=== PATIENT | female | born 2000 | race Caucasian/White ===

== ENCOUNTER 2019-05-13 17:46 | Emergency (ER) | payer MEDICAID ==
[~2019-05-13] VITALS: Ht 175.3 cm; Wt 104.5 kg
[~2019-05-13 17:46] MED LIST: CLINDAMYCIN150 MG PO; COLACE 100100 MG/CAP PO; NAPROSYN500 MG PO; NORCO 325 MG-51 TAB PO; PREDNISONE20 MG PO
[2019-05-13 19:04] LABS: CALCIUM 9.6 mg/dL (8.4-10.2); CREATININE, serum 0.65 (0.52-1.25); POTASSIUM 4.1 mmol/L (3.4-5.0)
[2019-05-13 20:18] VITALS: BP 125/65; PULSE 65; TEMP 98.3
== END 2019-05-13 20:20 | disposition home or self-care (01) ==
LOC: COL.ER 17:46
PROVIDERS: Nurse Practitioner
DX: T67.3XXA Heat exhaustion, anhydrotic, initial encounter (principal); Z88.0 Allergy status to penicillin; Z90.89 Acquired absence of other organs
CPT/HCPCS: J7030

== ENCOUNTER 2019-09-27 18:08 | Inpatient (IN) | payer SELFPAY ==
[~2019-09-27] VITALS: Ht 177.8 cm; Wt 83.6 kg
[2019-09-27 18:54] LABS: HEMOGLOBIN 11.8 g/dl (12.0-15.0); MEAN CELL VOLUME 83 fl (80.0-95.0); MEAN CORPUSCULAR HEMOGLOBIN 28 pg (26.0-32.0); MEAN CORPUSCULAR HGB CONC 34 g/dl (33.0-37.0); MEAN PLATELET VOLUME 10.5 fl (7.4-10.4); PLATELET COUNT 177 K/mm3 (130-400); REDCELL DISTRIBUTION WIDTH-CV 13.8 % (11.5-14.5)
[2019-09-27 18:54] LABS: COLLECTION METHOD CLEAN CATCH
[2019-09-27 18:57] LABS: HEMATOCRIT 34.7 % (35.0-45.0)
[2019-09-27 19:09] LABS: MUCOUS Present /lpf; PH 6 (5-8); SQUAMOUS EPITHELIAL 0-2 /hpf; URINE APPEARANCE Cloudy; URINE BACTERIA Moderate /hpf; URINE BILIRUBIN Negative (NEGATIVE); URINE BLOOD 2+ (NEGATIVE); URINE COLOR Amber; URINE GLUCOSE Negative (NEGATIVE); URINE KETONE 1+ (NEGATIVE); URINE LEUKOCYTE ESTERASE 2+ (NEGATIVE); URINE NITRATE Negative (NEGATIVE); URINE PROTEIN(semi-quant) 2+ (NEGATIVE); URINE UROBILINOGEN >=4.0 mg/dL (NEGATIVE)
[2019-09-27 19:12] LABS: ALBUMIN 3.5 gm/dL (3.5-5.0); BILIRUBIN,TOTAL 1.2 mg/dL (0.0-1.0); CALCIUM 8.8 mg/dL (8.4-10.2); CREATININE, serum 0.98 (0.52-1.25); POTASSIUM 3.4 mmol/L (3.4-5.0)
[2019-09-27 19:40] LABS: C-REACTIVE PROTEIN 31.1 mg/dL (0.0-0.9)
[2019-09-27 20:04] LABS: BAND 9 % (0-10); LYMPHOCYTE 4 % (20.0-51.0); NEUTROPHILS 76 % (42.0-75.2); PLATELET ESTIMATE NORMAL (NORMAL)
[2019-09-27 20:05] LABS: MICROCYTOSIS 1+
--- NOTE | 2019-09-27 21:50 | NUR ---
RECEIVED FROM ER PER W/C, 19Y/O FEMALE WITH DX PYELONEPHRITIS. IS ALERT AND ORIENTED X4. HAS SL TO RIGHT AC WITHOUT REDNESS OR SWELLING. REPORTS CURRENTLY ON HER PERIOD.
[2019-09-27 22:43] VITALS: BP 84/48; PULSE 83; TEMP 98.3; TEMP 983
--- NOTE | 2019-09-27 23:13 | NUR ---
PATIENT COMPLAINING OF "BUTTERFLIES" IN HER STOMACH AND LEFT PELVIC AREA. PETR ONEILL ORDERS MORPHINE 1MG IVP Q2HR PRN. DOSE GIVEN AT THIS TIME. PROVIDED SANDWICH BOX PER PT REQUEST.
[2019-09-27 23:19] LABS: ANION GAP 10 mmol/L (7-16); BLOOD UREA NITROGEN 18 mg/dL (7-17); CALCIUM 8.3 mg/dL (8.4-10.2); CARBON DIOXIDE 23 mmol/L (22-30); CHLORIDE 96 mmol/L (98-107); CREATININE, serum 0.82 (0.52-1.25); GLUCOSE 104 mg/dL (74-106); MAGNESIUM 2.4 mg/dL (1.6-2.3); SODIUM 129 mmol/L (137-145)
[2019-09-27 23:28] LABS: POTASSIUM 2.9 mmol/L (3.4-5.0); SALICYLATE < 1.0 mg/dL
[2019-09-27 23:33] LABS: INR 1.4 (0.8-3.0); PROTHROMBIN TIME 16.6 SECONDS (9.7-12.8)
[2019-09-27 23:48] LABS: TROPONIN-I < 0.012 ng/mL (0.000-0.035)
--- NOTE | 2019-09-28 00:20 | NUR ---
Collected urine for lab and respiratory virus panel swab at this time. Patient ate most of box lunch, sitting in bed playing on her phone. No concerns offered at this time.
--- NOTE | 2019-09-28 03:25 | NUR ---
PATIENT RESTING IN BED. IV POTASSIUM INFUSING WITHOUT BURNING OR PAIN. HAS VOIDED SEVERAL TIMES SINCE ARRIVAL TO FLOOR. NO COMPLAINTS OF PAIN AT THIS TIME.
[2019-09-28 04:43] VITALS: BP 98/46; PULSE 96; TEMP 99.8
--- NOTE | 2019-09-28 04:49 | NUR ---
Patient tearful, asking for Morphine for lower abd pain. Given MS 1mg at 0448. Medicated with Tylenol 650mg po for temp 99.8. Potassium replacement complete, will have AM labs. Voiding without problem.
[2019-09-28 07:04] LABS: MEAN CELL VOLUME 85 fl (80.0-95.0); MEAN CORPUSCULAR HEMOGLOBIN 29 pg (26.0-32.0); MEAN CORPUSCULAR HGB CONC 34 g/dl (33.0-37.0); MEAN PLATELET VOLUME 10.7 fl (7.4-10.4); PLATELET COUNT 157 K/mm3 (130-400); RED BLOOD COUNT 3.49 M/mm3 (4.10-5.30); REDCELL DISTRIBUTION WIDTH-CV 14.1 % (11.5-14.5)
[2019-09-28 07:17] LABS: ALBUMIN 2.7 gm/dL (3.5-5.0); CALCIUM 8.3 mg/dL (8.4-10.2); CREATININE, serum 0.67 (0.52-1.25); HEMATOCRIT 29.5 % (35.0-45.0); POTASSIUM 3.4 mmol/L (3.4-5.0); TOTAL PROTEIN 5.7 gm/dL (6.4-8.2)
[2019-09-28 07:38] VITALS: BP 82/41; PULSE 96; TEMP 100.4
[2019-09-28 08:34] LABS: BAND 30 % (0-10); EOSINOPHIL 1 % (0-4); LYMPHOCYTE 6 % (20.0-51.0); METAMYELOCYTE 2 % (0-0); NEUTROPHILS 58 % (42.0-75.2); OVALOCYTES 1+
[2019-09-28 08:35] LABS: PLATELET ESTIMATE NORMAL (NORMAL)
--- NOTE | 2019-09-28 09:47 | NUR ---
MARY met with the patient to discuss a discharge plan. The patient is self-pay, does not have insurance. Ileana Financial Counselor will work up new [facility] application with the patient. Patient was previously on [facility]. The patient lives in [place] with her sister. The patient does not use DME and reports independence with ADLs. The patient does not have a PCP but was interested in a [facility] new patient application. Forms provided. The patient receives medications from [facility] and has difficulties paying for them. Medication voucher will need to be provided upon discharge if there are medications prescribed. The patient plans to return home upon discharge and may need a transportation assistance. clinical services consultant will continue to follow.
--- NOTE | 2019-09-28 10:00 | NUR ---
Patient alert and oriented, answers questions appropriately. See assessment. Abdomen soft, non tender, non distended. Bowel sounds acitve x4 quads. +Flatus. C/o bilateral flank pain. No c/o urinary burning, frequency or hesitancy. Voiding adequate amounts. No other c/o at this time.
--- NOTE | 2019-09-28 12:01 | NUR ---
Initial visit; Patient thanked Medical Records Secretary for coming by and offering conmfort and spiritual care. Medical Records Secretary will follow up.
[2019-09-28 12:16] VITALS: BP 80/42; PULSE 77; TEMP 98.4
[2019-09-28 15:50] VITALS: BP 95/34; PULSE 100; TEMP 100.9
[2019-09-28 19:18] VITALS: BP 106/42; PULSE 119; TEMP 102.8
--- NOTE | 2019-09-28 19:20 | NUR ---
Pt resting in bed. Friends at bedside. Woman in the room, who identifies herself as the patients mothers "best friend" and her "second mom" is very upset with the care the patient received during the day. She states "you guys aren't taking care of her or addressing anything". Pt reassured. Pt reports pain 7/10 in epigastric region-dull. Pts temperature is also elevated to 102.8. Tylenol was discontinued today due to elevated LFTs. Will contact ORTHOPEDIC SHOES SALESPERSON for orders. Pt alert and oriented. Respirations even and unlabored. Lungs clear. Abdomen rounded, soft. BS+. Ambient temperature in the room is set to highest setting- decreased. IVF infusing to R AC. Pt drinking no free water due to restrictions-denies furhter needs.
--- NOTE | 2019-09-28 19:32 | NUR ---
Orders received from Debbie ONEILL for PRN Motrin to control temperature.
--- NOTE | 2019-09-28 20:01 | NUR ---
PRN pain medication given to control abdominal pain that patient rates 7/10. Pt is alert and oriented. No distress noted.
[2019-09-28 22:27] VITALS: BP 87/52; PULSE 100; TEMP 102.1
--- NOTE | 2019-09-28 22:45 | NUR ---
Patient temperature has been nonresponsive to Ibuprofen. Blood pressure is also decreased to 87/52 after pain medication was administered. Orders received from Debbie ONEILL for second dose of Motrin and IVF bolus.
[2019-09-29] VITALS (8 sets, daily range): BP systolic 81–102; BP diastolic 43–52; PULSE 71–102; TEMP 97.8–103.2
--- NOTE | 2019-09-29 00:05 | NUR ---
Pts temperature responsive to second dose of Motrin PO- 100.3. Aide reported patients blood pressure did not increase with 1L bolus. Blood pressure rechecked manually- 102/48.
--- NOTE | 2019-09-29 05:30 | NUR ---
Debbie ONEILL called about patient blood pressure decreasing again. No orders received.
--- NOTE | 2019-09-29 06:45 | NUR ---
Report given to Delfina PEARCE. Pt resting in bed with HOB elevated. No distress noted.
[2019-09-29 07:03] LABS: MEAN CELL VOLUME 86 fl (80.0-95.0); MEAN CORPUSCULAR HGB CONC 34 g/dl (33.0-37.0); PLATELET COUNT 180 K/mm3 (130-400); RED BLOOD COUNT 3.22 M/mm3 (4.10-5.30); REDCELL DISTRIBUTION WIDTH-CV 15.1 % (11.5-14.5)
[2019-09-29 07:13] LABS: HEMATOCRIT 27.8 % (35.0-45.0); HEMOGLOBIN 9.3 g/dl (12.0-15.0); MEAN CORPUSCULAR HEMOGLOBIN 29 pg (26.0-32.0)
[2019-09-29 07:24] LABS: ALBUMIN 2.4 gm/dL (3.5-5.0); BILIRUBIN,TOTAL 0.7 mg/dL (0.0-1.0); CALCIUM 7.9 mg/dL (8.4-10.2); CREATININE, serum 0.66 (0.52-1.25); POTASSIUM 3.5 mmol/L (3.4-5.0); TOTAL PROTEIN 5.2 gm/dL (6.4-8.2)
[2019-09-29 08:49] LABS: BAND 44 % (0-10); LYMPHOCYTE 14 % (20.0-51.0); NEUTROPHILS 31 % (42.0-75.2)
[2019-09-29 08:51] LABS: PLATELET ESTIMATE NORMAL (NORMAL)
--- NOTE | 2019-09-29 10:06 | NUR ---
Patient resting in bed. Alert & oriented. Denies needing pain medication. Tolerating diet slowly. Ivf per orders. Afebrile at this time. Vss. Labs overal improving, k+ per protocol. Will teresa.
--- NOTE | 2019-09-29 10:38 | NUR ---
Follow-up visit; Patient offered a slight smile and states she is doing better today. Senior Statistician wished her well and offered God's blessings.
--- NOTE | 2019-09-29 13:45 | NUR ---
Patient in better spirits this afternoon. Feeling better, improved appetite. Afebrile. Vss. Urine clearing. Ivf continue. Will teresa.
--- NOTE | 2019-09-29 19:00 | NUR ---
Report received. Assumed care for mortgage loan specialist. Assessment complete. A&Ox3. VS stable. Denies nausea/shortness of breath. States she is having pain to left side/back-rating 8/10 on pain scale-described as throbbing. Roxicodone given per dr order. States she feels as if she is hot-worried temp has increased since last check. Checked at this time-103.2 orally-tylenol 650mgs given per dr order. Right AC with NS@150mls/hr. Plan of care discussed for this shift to include pain control and fluid intake. Denies questions or concerns. Call light in reach/bed in low position/wheels locked. Will monitor.
--- NOTE | 2019-09-29 19:19 | NUR ---
Patient resting in bed. Fever has returned. Patient in spirits again. Florina Hampton to given tylenol. Report given.
[2019-09-30] VITALS (10 sets, daily range): BP systolic 89–124; BP diastolic 49–71; PULSE 65–114; TEMP 98.2–102.8
--- NOTE | 2019-09-30 04:20 | NUR ---
PCT reports oral temp of 100.5. Tylenol given per dr order. C/O pain to left side/back as well. Toradol per dr order.
[2019-09-30 08:41] LABS: BASO % 0.4 % (0.0-2.0); EOS % 0.3 % (0-4.0); GRAN # 6.4 (1.4-6.5); GRAN % 67.2 % (42.2-75.2); LYMPH # 1.7 (1.2-3.4); LYMPH % 17.4 % (20.0-51.0); MEAN CELL VOLUME 86 fl (80.0-95.0); MEAN CORPUSCULAR HGB CONC 33 g/dl (33.0-37.0); MEAN PLATELET VOLUME 10.9 fl (7.4-10.4); MONO # 1.3 (0.1-0.6); MONO % 13.2 % (1.7-9.3); PLATELET COUNT 277 K/mm3 (130-400); RED BLOOD COUNT 3.11 M/mm3 (4.10-5.30); REDCELL DISTRIBUTION WIDTH-CV 15.3 % (11.5-14.5)
[2019-09-30 08:46] LABS: ALBUMIN 2.4 gm/dL (3.5-5.0); BILIRUBIN,TOTAL 0.9 mg/dL (0.0-1.0); CALCIUM 8.1 mg/dL (8.4-10.2); CREATININE, serum 0.51 (0.52-1.25); MAGNESIUM 1.7 mg/dL (1.6-2.3); POTASSIUM 3.6 mmol/L (3.4-5.0); TOTAL PROTEIN 5.3 gm/dL (6.4-8.2)
[2019-09-30 09:19] LABS: HEMATOCRIT 26.7 % (35.0-45.0); HEMOGLOBIN 8.8 g/dl (12.0-15.0); MEAN CORPUSCULAR HEMOGLOBIN 28 pg (26.0-32.0)
--- NOTE | 2019-09-30 17:57 | NUR ---
Patient resting in bed. Friend/family at bedside. Patient did not like dinner, alternative meal ordered. Her appetitie is improved. Afebrile today. Adequate urine output. Ivf per orders. She spent most of the day resting with minimal needs.
--- NOTE | 2019-09-30 20:00 | NUR ---
Report received. 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 Assessment complete. A&Ox3. States she is having a headache-rating it 6/10 on scale-did received tylenol and toradol-has not started to work yet. Denies nausea/shortness of breath. Voiding without difficulty. Plan of care discussed for HS meds/nausea meds/pain meds-monitoring temp. Verbalizes understanding. Encouraged to call for questions or concerns. Verbalizes understanding. Will monitor.
[2019-10-01 04:00] VITALS: BP 127/80; PULSE 76; TEMP 99.4
[2019-10-01 08:16] VITALS: BP 122/79; PULSE 70; TEMP 98.1
[2019-10-01 08:29] LABS: BASO % 0.3 % (0.0-2.0); EOS # 0.1 (0.0-0.7); GRAN # 4.2 (1.4-6.5); GRAN % 57.6 % (42.2-75.2); LYMPH # 1.9 (1.2-3.4); LYMPH % 25.4 % (20.0-51.0); MEAN CELL VOLUME 86 fl (80.0-95.0); MEAN CORPUSCULAR HGB CONC 33 g/dl (33.0-37.0); MEAN PLATELET VOLUME 10.4 fl (7.4-10.4); MONO % 13.6 % (1.7-9.3); PLATELET COUNT 327 K/mm3 (130-400); RED BLOOD COUNT 3.01 M/mm3 (4.10-5.30); REDCELL DISTRIBUTION WIDTH-CV 15.3 % (11.5-14.5); RETIC # 0.02 M/mm3 (0.02-0.16); RETIC % 0.5 % (0.5-3.52)
[2019-10-01 08:39] LABS: HEMATOCRIT 25.9 % (35.0-45.0); HEMOGLOBIN 8.5 g/dl (12.0-15.0); MEAN CORPUSCULAR HEMOGLOBIN 28 pg (26.0-32.0)
[2019-10-01 08:51] LABS: IRON,SERUM 80 ug/dL (35-150)
[2019-10-01 08:59] LABS: ALBUMIN 2.4 gm/dL (3.5-5.0); BILIRUBIN,TOTAL 0.9 mg/dL (0.0-1.0); CALCIUM 8.1 mg/dL (8.4-10.2); CREATININE, serum 0.48 (0.52-1.25); MAGNESIUM 1.8 mg/dL (1.6-2.3); POTASSIUM 3.5 mmol/L (3.4-5.0); TOTAL PROTEIN 5.3 gm/dL (6.4-8.2)
[2019-10-01 09:00] LABS: TOTAL IRON BINDING CAPACITY 243 ug/dL (265-497)
[2019-10-01 11:39] VITALS: BP 101/74; PULSE 59; TEMP 98.2
[2019-10-01 14:16] LABS: FOLATE (FOLIC ACID) 7.4 ng/mL (7.0-31.4)
[2019-10-01] MEDS ORDERED: CEPHALEXIN500 M1 PO (14:30)
--- NOTE | 2019-10-01 16:27 | NUR ---
Discharge teaching completed. Reviewed discharge instructions with patient and instructed her to establish care with a primary care so she could have follow up lab work done in order to ensure the infection has been eradicated. Instructed patient to take prescribed antibiotics until course is completed. Patient verbalized understanding. IV removed, catheter intact, hemostasis achieved. Patient confirms that all personal belongings were gathered and patient escorted to ED entrance where she entered a private vehicle.
[2019-10-01 17:15] VITALS: TEMP 99.5
== END 2019-10-01 16:27 | disposition home or self-care (01) | DRG 872 ==
LOC: COL.ER 18:08 → SURG 21:24
PROVIDERS: Family Medicine; Nurse Practitioner Family; Physician Assistant; ADMIT Hospitalist
DX: A41.9 Sepsis, unspecified organism (principal); E87.1 Hypo-osmolality and hyponatremia; N10 Acute pyelonephritis; N17.9 Acute kidney failure, unspecified; F32.9 Major depressive disorder, single episode, unspecified; F41.9 Anxiety disorder, unspecified; F17.210 Nicotine dependence, cigarettes, uncomplicated; E87.6 Hypokalemia; R73.9 Hyperglycemia, unspecified; R74.8 Abnormal levels of other serum enzymes; D64.9 Anemia, unspecified; N83.201 Unspecified ovarian cyst, right side; B96.20 Unspecified Escherichia coli [E. coli] as the cause of diseases classified elsewhere; Z88.0 Allergy status to penicillin; Z91.040 Latex allergy status
CPT/HCPCS: 99222-AI; 99233-AI; 99239; A4216; J0696; J1650; J1885; J1956; J2270; J2405; J3480; J7030; J7040; Q9967

== ENCOUNTER 2022-03-21 10:36 | Emergency (ER) | payer BC ==
[~2022-03-21] VITALS: Ht 175.3 cm; Wt 90.9 kg
[~2022-03-21 10:36] MED LIST changes: +CEPHALEXIN500 M1 PO
[2022-03-21 10:41] VITALS: BP 148/106; PULSE 112; TEMP 98.2
[2022-03-21] MEDS ORDERED: ZITHROMAX Z PA250 MG PO (11:17)
[2022-03-21] MEDS ORDERED: PERCOCET 325 MG1 TA2 PO (11:17)
== END 2022-03-21 11:30 | disposition home or self-care (01) ==
LOC: COL.ER 10:36
DX: K02.9 Dental caries, unspecified (principal); Z88.0 Allergy status to penicillin; Z91.040 Latex allergy status; Z72.0 Tobacco use

== ENCOUNTER 2023-09-19 08:21 | Outpatient (CLI) | payer MEDICAID ==
[~2023-09-19] VITALS: Ht 175.3 cm; Wt 125.5 kg
[~2023-09-19 08:21] MED LIST changes: +CLEOCIN HCL300 MG PO; +PERCOCET 325 MG1 TA2 PO; +ZITHROMAX Z PA250 MG PO; +ZOFRAN ODT4 MG PO
--- NOTE | 2023-09-19 08:30 | NUR ---
PT AMBULATED ONTO THE UNIT WITH SIGNIFICANT OTHER FOR A LOABOR CHECK.PT DENIES LOF, HAS REPORTED LIGHT SPOTTING THAT DOES NOT SATURATE A PAD.PT REPORTS ALESSIO NAPOLES CONTRACTIONS.PT REPORTS POSITIVE MOVEMENT.PT ADVISED TO CHANGE INTO GOWN AND POC REVIEWED WITH PT.
[2023-09-19] MEDS ORDERED: FERRO-TIME325 MG PO (08:42)
[2023-09-19] MEDS ORDERED: NP THYROID30 MG PO (08:43)
[2023-09-19] MEDS ORDERED: LEVOXYL0.025 MG PO (08:44)
[2023-09-19 09:00] VITALS: BP 125/58; PULSE 94
== END 2023-09-19 10:03 | disposition home or self-care (01) ==
LOC: LDRO 08:21 → LDR 08:30 → LDRO 10:03
DX: Z34.90 Encounter for supervision of normal pregnancy, unspecified, unspecified trimester (principal)
CPT/HCPCS: OP

== ENCOUNTER 2023-10-16 17:47 | Outpatient (CLI) | payer MEDICAID ==
[~2023-10-16] VITALS: Ht 175.3 cm; Wt 133.2 kg
[~2023-10-16 17:47] MED LIST changes: +FERRO-TIME325 MG PO; +LEVOXYL0.025 MG PO; +NP THYROID30 MG PO
--- NOTE | 2023-10-16 18:15 | NUR ---
G1 at 34 weeks with complaint of elevated FHR using home doppler. Per patient, FHR was in the 170s at home. Pt denies vaginal bleeding, contractions, or LOF. Reports good movement. Denies problems this . Clean gown on. Oriented to room, call light within reach, bed in low and locked position. US and toco explained and applied. Admission assessment started. Vitals obtained. Reviewed plan of care with patient and spouse.
[2023-10-16 18:30] VITALS: BP 123/60; PULSE 96; TEMP 98.5
[2023-10-16] MEDS ORDERED: LR 1,000 ML IV PRN (18:30)
[2023-10-16] MEDS ORDERED: PRENATAL TABLET PO (18:49)
[2023-10-16] MEDS ORDERED: LEVOXYL0.05 MG PO (18:50)
[2023-10-16 19:10] VITALS: BP 123/70; PULSE 86
--- NOTE | 2023-10-16 19:20 | NUR ---
Reactive FHR tracing obtained. Monitors off. Discharge instructions reviewed with patient and FOB. Education provided, verbalized understanding. Pt seen ambulating off unit with FOB in stable condition.
== END 2023-10-16 19:20 | disposition home or self-care (01) ==
LOC: LDRO 17:47
DX: Z34.93 Encounter for supervision of normal pregnancy, unspecified, third trimester (principal); Z3A.34 34 weeks gestation of pregnancy

== ENCOUNTER 2023-11-27 05:51 | Inpatient (IN) | payer MEDICAID ==
[2023-11-27] VITALS (47 sets, daily range): BP systolic 78–157; BP diastolic 50–88; PULSE 76–113; TEMP 98–98.9
[~2023-11-27] VITALS: Ht 175.4 cm; Wt 142.3 kg
[~2023-11-27 05:51] MED LIST changes: +LEVOXYL0.05 MG PO; +PRENATAL TABLET PO
[2023-11-27] MEDS ORDERED: LR & Oxytocin 500 ML IV SCH (06:30)
[2023-11-27] MEDS ORDERED: LR 1,000 ML IV SCH (06:30)
[2023-11-27] MEDS ORDERED: ceFAZolin 2 G in Water For Injection,Sterile 20 ML IV ONE (06:30)
[2023-11-27 07:45] LABS: BASO % 0.2 % (0.0-2.0); EOS % 0.3 % (0.0-4.0); GRAN # 7.7 K/mm3 (1.4-6.5); GRAN % 79.8 % (42.2-75.2); LYMPH # 1.2 K/mm3 (1.2-3.4); LYMPH % 12.7 % (20.0-51.0); MEAN CELL VOLUME 84 fl (80.0-100.0); MEAN CORPUSCULAR HEMOGLOBIN 28 pg (27-31); MEAN CORPUSCULAR HGB CONC 34 g/dl (33.0-37.0); MEAN PLATELET VOLUME 9.3 fl (7.4-10.4); MONO # 0.6 K/mm3 (0.1-0.6); MONO % 6.5 % (1.7-9.3); PLATELET COUNT 298 K/mm3 (130-400); RED BLOOD COUNT 4.23 M/mm3 (4.10-5.30); REDCELL DISTRIBUTION WIDTH-CV 13.9 % (11.5-14.5)
--- NOTE | 2023-11-27 07:45 | NUR ---
Pt and boyfried arrive ambulatory to unit for scheduled induction of labor. Pt changes into gown, EFM explained and placed, VS taken. Plan of care discussed with patient, questions invited and answered. Pt denies leaking of fluid, vaginal bleeding, and contractions, reports good movement. IV started in left forearm, LR started per protocol. Urine sample obtained for hx of marijuana use. FHR Cat 1, occasional contractions noted. Oxytocin and Ancef started as ordered.
[2023-11-27 07:58] LABS: HEMATOCRIT 35.3 % (37.0-47.0)
[2023-11-27 08:40] LABS: TRICYCLIC ANTIDEPRESS URINE NEGATIVE (NEGATIVE)
--- NOTE | 2023-11-27 09:45 | NUR ---
PT OFF MONITOR TO BATHROOM AT THIS TIME
--- NOTE | 2023-11-27 11:00 | NUR ---
Pt requesting epidural at this time. HEIDE Bautista notified.
[2023-11-27] MEDS ORDERED: ROPivacaine PF 0.2% 200 ML IV ONE (11:11)
[2023-11-27] MEDS ORDERED: diphenhydrAMINE 25 MG CAP PO PRN (11:45)
[2023-11-27] MEDS ORDERED: diphenhydrAMINE 50 MG/ML 1 ML VIAL IV PRN (11:45)
[2023-11-27] MEDS ORDERED: ePHEDrine 50 MG/10 ML VIAL IV PRN (11:45)
[2023-11-27] MEDS ORDERED: Naloxone 0.4 MG/ML VIAL IV PRN ×2 (11:45→16:00)
[2023-11-27] MEDS ORDERED: Ondansetron 4 MG/2 ML VIAL IV PRN ×2 (11:45→16:00)
--- NOTE | 2023-11-27 11:45 | NUR ---
Lily SPINNING AND WINDING SUPERVISOR to bedside at 1120. Pt repositioned to sitting at bedside. Single shot done at 1126, test dose given at 1131. Pt tolerated well. Pt repositioned low fowlers at 1138.
--- NOTE | 2023-11-27 11:47 | NUR ---
TOCO WAS NOT READING CONTRACTIONS AT THIS TIME. TOCO ADJUSTED AND RESUMED READING AT 0916
[2023-11-27] MEDS ORDERED: TRANDATE 100MG100 MG PO (11:55)
--- NOTE | 2023-11-27 12:15 | NUR ---
Recurrent late decels noted starting at 1147. Pt repositioned WR at 1200. Some difficulty finding FHR following reposition, FHR returns on monitor at 1210. Variable decel noted at 1214.
--- NOTE | 2023-11-27 12:50 | NUR ---
Late decels return following contraction at 1228, moderate variability continues. Variable decel at 1244. SVE at 1245 1-2//-2, mcghee placed at this time. Pt repositioned RL.
--- NOTE | 2023-11-27 13:30 | NUR ---
Late decels continue following repostion. Pt repositioned again to LL with RL in stirrup. Difficulty tracing FHR following this reposition, continuous tracing obtained at 1325.
--- NOTE | 2023-11-27 13:55 | NUR ---
Late and variable decels noted to continue. Pitocin decreased to 8 at 1333. At 1335, IV found to be infiltrated, approx 5in by 3in blanched area noted on forearm, cool to touch. IV stopped at this time, site discontinued. New IV started in right hand at 1350. Dr. Shin notified, see physician notification.
[2023-11-27] MEDS ORDERED: ceFAZolin 1 G in Water For Injection,Sterile 10 ML IV SCH (14:00)
--- NOTE | 2023-11-27 14:15 | NUR ---
Late decels continue, pt repositioned left lateral at 1410.
--- NOTE | 2023-11-27 14:40 | NUR ---
Dr. Shin to bedside. SVE per provider 2-/-2. IUPC placed at this time. Pt repositioned LL with right leg in stirrup.
[2023-11-27] MEDS ORDERED: Chloroprocaine PF 3% (30 MG/ML) 20 ML VIAL ONE ×2 (15:31→16:21)
[2023-11-27] MEDS ORDERED: Azithromycin 500 MG in NS 250 ML IV ONE (15:45)
[2023-11-27] MEDS ORDERED: Tranexamic Acid 1,000 MG in NS 100 ML IV ONE (15:45)
[2023-11-27] MEDS ORDERED: Magnes Hydrox (MOM) 80 MG/ML 30 ML CUP PO PRN (16:00)
[2023-11-27] MEDS ORDERED: Acetaminophen 500 MG TAB PO PRN (16:00)
[2023-11-27] MEDS ORDERED: Measles/Mumps/Rubella Virus Vaccine Live w Diluent 0.5 ML VIAL SQ SCH (16:00)
[2023-11-27] MEDS ORDERED: oxyCODONE 5 MG TAB PO PRN ×2 (16:00→19:00)
[2023-11-27] MEDS ORDERED: Loratadine 10 MG TAB PO PRN (16:00)
[2023-11-27] MEDS ORDERED: LR 1,000 ML IV PRN (16:00)
[2023-11-27] MEDS ORDERED: Midazolam 2 MG/2 ML VIAL ONE (16:06)
[2023-11-27] MEDS ORDERED: fentaNYL 50 MCG/ML 2 ML VIAL ONE (16:08)
[2023-11-27] MEDS ORDERED: Ondansetron 4 MG/2 ML VIAL ONE (16:20)
[2023-11-27] MEDS ORDERED: Ketorolac 30 MG/ML VIAL ONE (16:20)
[2023-11-27] MEDS ORDERED: NS 10 ML IV ONE (16:20)
[2023-11-27] MEDS ORDERED: Sennosides/Docusate 8.6-50 MG TAB PO SCH (17:00)
[2023-11-27] MEDS ORDERED: fentaNYL 50 MCG/ML 2 ML VIAL IV ONE (17:15)
--- NOTE | 2023-11-27 17:30 | NUR ---
Pt experiencing a lot of pain with and after fundal rubs in PACU. HEIDE Bautista notified of pain and current BP of 95/59. Orders received for Fentanyl. Pt BP dropped to 78/59, 10mg ephedrine given. BP improved to 95/76. Fentanyl then given.
[2023-11-27] MEDS ORDERED: MOTRIN 800800 MG/TAB PO (17:40)
[2023-11-27] MEDS ORDERED: PERCOCET 325 MG1 TA2 PO (17:40)
--- NOTE | 2023-11-27 18:08 | NUR ---
1445 - Negrita RN to bedside. FSE placed by Negrita at this time per Dr. Shin's instruction. 1506 - Artifact with FSE, FSE removed and sono replaced for FHR monitoring. 1520 - FHR tachycardic, moderate variability, no accelerations. Dr. Shin remains on unit, watching FHR strip. 1527 - 2 min late decel at this time. Dr. Shin to bedside. SVE per provider unchanged from previous check. Dr. Shin counsels pt to proceed with at this time. Pt tearful but agrees. 1540 - Abdominal prep done. Ortiz emptied of 350ml urine. 1545 - Pt taken off monitors and taken to OR via bed.
[2023-11-27] MEDS ORDERED: Morphine 4 MG/ML VIAL IV PRN (19:00)
--- NOTE | 2023-11-27 20:30 | NUR ---
This RN took over care of patient from PORTIA Borrego at this time.
[2023-11-27] MEDS ORDERED: traZODone 50 MG TAB PO PRN (21:00)
--- NOTE | 2023-11-27 21:00 | NUR ---
Reviewing plan of care with patient. Pt states that she would like to attempt to breastfeed, this RN suggested patient start to pump, pt declines at this time and just wants to rest tonight.
--- NOTE | 2023-11-27 21:40 | NUR ---
Patient able to lift and hold each leg off of bed for 5 seconds but still having pain control issues and does not want to attempt to walk at this time. Pt able to pivot transfer to wheelchair to go to nursery.
[2023-11-27] MEDS ORDERED: Ibuprofen 800 MG TAB PO SCH (22:00)
--- NOTE | 2023-11-27 22:30 | NUR ---
Pt back to room from nursery. Able to pivot back in to bed. Pt requesting not to wear SCDs at this time. Pt declines to have abdominal binder on. Pt declines to sit up/roll over in bed to take epidural catheter out. Reviewed plan of care to remove mcghee catheter and ambulate during our shift. Pt would like to take a nap and take next dose of pain medication before getting out of bed.
[2023-11-28 03:08] VITALS: BP 133/77; PULSE 93; TEMP 98
[2023-11-28 07:33] VITALS: BP 115/64; PULSE 99; TEMP 98.7
[2023-11-28] MEDS ORDERED: ROPivacaine PF 0.2% 200 ML IV ONE (10:27)
[2023-11-28 16:26] VITALS: BP 132/46; PULSE 102; TEMP 98.5
[2023-11-28 21:45] VITALS: BP 125/66; PULSE 95; TEMP 98.2
[2023-11-29 07:03] VITALS: BP 128/78; PULSE 98; TEMP 98.2
[2023-11-29] MEDS ORDERED: Influenza Virus Vaccine, Quad '23-24 (6 MOS+) 0.5 ML SYRINGE IM SCH (09:00)
--- NOTE | 2023-11-29 09:40 | NUR ---
Initial visit attempt; Family resting, Job Site Superintendent left card offering congratulations and God's blessings for the of their son along with information regarding the availability of Spiritual Care at our hospital.
[2023-11-29 16:00] VITALS: BP 134/78; PULSE 82; TEMP 97.8
[2023-11-29 20:30] VITALS: BP 138/67; PULSE 104; TEMP 98.8
[2023-11-30 07:15] VITALS: BP 131/68; PULSE 91; TEMP 98
--- NOTE | 2023-11-30 14:10 | NUR ---
DISCHARGE EDUCATION COMPLETED, HEALTH HISTORY GIVEN, DISCUSSED FOLLOW UP APPOINTMENTS. QUESTIONS INVITIED AND ANSWERED. ID BANDS VERIFIED WITH INFANT BAND, FOOT PRINT SHEET AND MOTHER'S BAND AND SIGNED.
== END 2023-11-30 16:45 | disposition home or self-care (01) | DRG 786 ==
LOC: LDR 05:51 → OB 05:51 → LDR 06:27 → OB 07:24
PROVIDERS: ADMIT Obstetrics & Gynecology
PROC: 10D00Z1 Extraction of Products of Conception, Low, Open Approach (ICD-10-PCS; principal; 2023-11-27)
PROC: 10907ZC Drainage of Amniotic Fluid, Therapeutic from Products of Conception, Via Natural or Artificial Opening (ICD-10-PCS; 2023-11-27)
PROC: 3E033VJ Introduction of Other Hormone into Peripheral Vein, Percutaneous Approach (ICD-10-PCS; 2023-11-27)
DX: O48.0 Post-term pregnancy (principal); O99.42 Diseases of the circulatory system complicating childbirth; O99.324 Drug use complicating childbirth; Z37.0 Single live birth; O76 Abnormality in fetal heart rate and rhythm complicating labor and delivery; R00.2 Palpitations; O99.284 Endocrine, nutritional and metabolic diseases complicating childbirth; E03.9 Hypothyroidism, unspecified; O99.02 Anemia complicating childbirth; D64.9 Anemia, unspecified; O99.344 Other mental disorders complicating childbirth; F32.A Depression, unspecified; F41.3 Other mixed anxiety disorders; O99.333 Smoking (tobacco) complicating pregnancy, third trimester; F12.90 Cannabis use, unspecified, uncomplicated; O99.213 Obesity complicating pregnancy, third trimester; F17.290 Nicotine dependence, other tobacco product, uncomplicated; Z3A.40 40 weeks gestation of pregnancy; Z79.890 Hormone replacement therapy; Z88.0 Allergy status to penicillin; Z90.49 Acquired absence of other specified parts of digestive tract
CPT/HCPCS: J0690; J1885; J2250; J2270; J2401; J2405; J2590; J2795; J3010; J7120

== ENCOUNTER 2024-03-12 06:11 | Emergency (ER) | payer MEDICAID ==
[~2024-03-12] VITALS: Ht 175.3 cm; Wt 122.7 kg
[~2024-03-12 06:11] MED LIST changes: +MOTRIN 800800 MG/TAB PO; +TRANDATE 100MG100 MG PO
[2024-03-12 06:14] VITALS: TEMP 98.3
[2024-03-12] MEDS ORDERED: Azithromycin 250 MG TAB PO ONE (06:45)
[2024-03-12 06:58] VITALS: BP 122/86; PULSE 80
== END 2024-03-12 06:59 | disposition home or self-care (01) ==
LOC: COL.ER 06:11
DX: H66.92 Otitis media, unspecified, left ear (principal); Z91.040 Latex allergy status; Z88.0 Allergy status to penicillin; Z88.1 Allergy status to other antibiotic agents

== ENCOUNTER 2024-05-13 07:42 | Emergency (ER) | payer MEDICAID ==
[~2024-05-13] VITALS: Ht 175.3 cm; Wt 124.1 kg
[2024-05-13 07:53] VITALS: TEMP 98.7
[2024-05-13] MEDS ORDERED: droPERidol 2.5 MG/ML 2 ML VIAL IV ONE (08:15)
[2024-05-13] MEDS ORDERED: NS 1,000 ML IV ONE ×2 (08:15→09:30)
[2024-05-13] MEDS ORDERED: Morphine 4 MG/ML VIAL IV PRN (08:15)
[2024-05-13 08:32] LABS: COLLECTION METHOD CLEAN CATCH
[2024-05-13 08:33] LABS: BASO % 0.2 % (0.0-2.0); EOS % 0.2 % (0.0-4.0); GRAN # 6.2 K/mm3 (1.4-6.5); GRAN % 75.3 % (42.2-75.2); HEMATOCRIT 40.1 % (37.0-47.0); HEMOGLOBIN 13.2 g/dl (12.5-16.0); LYMPH # 1.4 K/mm3 (1.2-3.4); LYMPH % 16.9 % (20.0-51.0); MEAN CELL VOLUME 83 fl (80.0-100.0); MEAN CORPUSCULAR HEMOGLOBIN 27 pg (27-31); MEAN CORPUSCULAR HGB CONC 33 g/dl (33.0-37.0); MEAN PLATELET VOLUME 9.7 fl (7.4-10.4); MONO # 0.6 K/mm3 (0.1-0.6); MONO % 7.2 % (1.7-9.3); PLATELET COUNT 337 K/mm3 (130-400); RED BLOOD COUNT 4.83 M/mm3 (4.10-5.30); REDCELL DISTRIBUTION WIDTH-CV 13.1 % (11.5-14.5)
[2024-05-13 08:35] LABS: PH 6.5 (5.0-8.5); URINE APPEARANCE CLEAR (CLEAR/HAZY); URINE BLOOD NEGATIVE (NEGATIVE); URINE COLOR YELLOW (YELLOW); URINE GLUCOSE NEGATIVE (NEGATIVE); URINE KETONE 3+ (NEGATIVE); URINE NITRATE NEGATIVE (NEGATIVE); URINE PROTEIN(semi-quant) NEGATIVE (NEGATIVE)
[2024-05-13 09:04] LABS: ALBUMIN 4.3 g/dL (3.5-5.0); BILIRUBIN,TOTAL 0.6 mg/dL (0.2-1.2); CALCIUM 10.1 mg/dL (8.4-10.2); CREATININE, serum 0.72 mg/dL (0.57-1.11)
[2024-05-13] MEDS ORDERED: Iohexol 300 - 100 ML VIAL IV ONE (09:30)
[2024-05-13] MEDS ORDERED: NS 100 ML IV SCH (09:31)
[2024-05-13] MEDS ORDERED: PROTONIX 40MG T40 MG PO (10:59)
[2024-05-13] MEDS ORDERED: REGLAN 10MG10 MG/TAB PO (10:59)
[2024-05-13 11:18] VITALS: BP 134/74; PULSE 78
== END 2024-05-13 11:19 | disposition home or self-care (01) ==
LOC: COL.ER 07:42
PROVIDERS: Personal Emergency Response Attendant
DX: R10.13 Epigastric pain (principal); R11.10 Vomiting, unspecified; Z91.040 Latex allergy status
CPT/HCPCS: J1790; J7030; Q9967

== ENCOUNTER 2024-08-29 12:32 | Emergency (ER) | payer MEDICAID ==
[~2024-08-29] VITALS: Ht 172.7 cm; Wt 107.7 kg
[~2024-08-29 12:32] MED LIST changes: +AMITRIPTYLINE H25 M1 PO; +DULOXETINE HCL40 MG PO; +INDERAL 10MG10 MG PO; +PROTONIX 40MG T40 MG PO; +REGLAN 10MG10 MG/TAB PO
[2024-08-29 12:47] VITALS: TEMP 98.9
[2024-08-29] MEDS ORDERED: Ondansetron 4 MG/2 ML VIAL IV ONE (16:15)
[2024-08-29] MEDS ORDERED: NS 1,000 ML IV ONE ×2 (16:15→17:45)
[2024-08-29 16:51] LABS: BASO % 0.4 % (0.0-2.0); GRAN # 5.3 K/mm3 (1.4-6.5); GRAN % 66.9 % (42.2-75.2); HEMATOCRIT 40.6 % (37.0-47.0); HEMOGLOBIN 13.8 g/dl (12.5-16.0); LYMPH # 1.7 K/mm3 (1.2-3.4); LYMPH % 21.7 % (20.0-51.0); MEAN CELL VOLUME 82 fl (80.0-100.0); MEAN CORPUSCULAR HEMOGLOBIN 28 pg (27-31); MEAN CORPUSCULAR HGB CONC 34 g/dl (33.0-37.0); MEAN PLATELET VOLUME 9.8 fl (7.4-10.4); MONO # 0.8 K/mm3 (0.1-0.6); MONO % 10.7 % (1.7-9.3); PLATELET COUNT 380 K/mm3 (130-400); RED BLOOD COUNT 4.98 M/mm3 (4.10-5.30); REDCELL DISTRIBUTION WIDTH-CV 13.5 % (11.5-14.5)
[2024-08-29 17:04] LABS: ALBUMIN 4.2 g/dL (3.5-5.0); BILIRUBIN,TOTAL 0.4 mg/dL (0.2-1.2); CALCIUM 9.7 mg/dL (8.4-10.2); CREATININE, serum 0.73 mg/dL (0.57-1.11); POTASSIUM 3.3 mEq/L (3.5-4.5); TOTAL PROTEIN 9.3 g/dl (6.2-8.1)
[2024-08-29 17:53] LABS: COLLECTION METHOD CLEAN CATCH
[2024-08-29] MEDS ORDERED: ZOFRAN 4MG T4 MG/TAB PO (17:56)
[2024-08-29 17:59] LABS: URINE APPEARANCE CLEAR (CLEAR/HAZY); URINE BLOOD NEGATIVE (NEGATIVE); URINE COLOR YELLOW (YELLOW); URINE GLUCOSE NEGATIVE (NEGATIVE); URINE KETONE TRACE (NEGATIVE); URINE NITRATE NEGATIVE (NEGATIVE); URINE PROTEIN(semi-quant) NEGATIVE (NEGATIVE); URINE UROBILINOGEN 0.2 E.U/dL (0.2-1.0)
[2024-08-29 18:31] LABS: TRICYCLIC ANTIDEPRESS URINE NEGATIVE (NEGATIVE)
[2024-08-29 18:56] VITALS: BP 118/74; PULSE 69
== END 2024-08-29 18:56 | disposition home or self-care (01) ==
LOC: COL.ER 12:32
PROVIDERS: Physician Assistant
DX: R11.2 Nausea with vomiting, unspecified (principal); E87.6 Hypokalemia; Z91.040 Latex allergy status
CPT/HCPCS: J2405; J7030